=== PATIENT | male | born 1980 | race African-American/Black ===

== ENCOUNTER 2019-12-08 21:29 | Emergency (ER) | payer OTHER ==
[~2019-12-08] VITALS: Ht 172.7 cm; Wt 173.7 kg
[2019-12-08 22:57] LABS: Urine Bacteria NONE SEEN /hpf (None Seen); Urine Blood Negative /uL (Negative); Urine Mucus FEW (None Seen); Urine Specific Gravity 1.027 (1.001-1.035); Urine WBC 2 /hpf (0 - 3)
[2019-12-08] MEDS ORDERED: metroNIDAZOLE 500 MG TAB PO ONE (23:30)
[2019-12-09] VITALS: BP 136/71
== END 2019-12-09 00:14 | disposition home or self-care (01) ==
LOC: ER 21:31
DX: Z20.2 Contact with and (suspected) exposure to infections with a predominantly sexual mode of transmission (principal)
CPT/HCPCS: 81001; 99283; J7030